=== PATIENT | female | born 2000 | race African-American/Black ===

== ENCOUNTER 2023-01-11 09:41 | Outpatient (CLI) | payer OTHER, SELFPAY ==
[2023-01-11 21:18] LABS: Thyroid Stimulating Hormone 0.497 uIU/mL (0.465-4.680)
[2023-01-11 22:15] LABS: Free T4 Free Thyroxine 1.17 ng/mL (0.78-2.19)
[2023-01-15 05:21] LABS: Triiodothyronine T3 Free 2.6 pg/mL (2.3-4.2)
== END 2023-01-11 09:42 | disposition home or self-care (01) ==
LOC: ANHWCLAB 09:42
PROVIDERS: Visit Provider Internal Medicine Endocrinology, Diabetes & Metabolism
DX: R79.89 Other specified abnormal findings of blood chemistry (principal); E04.9 Nontoxic goiter, unspecified
CPT/HCPCS: 36415; 84439; 84443; 84481

== ENCOUNTER 2023-02-22 14:30 | Outpatient (RCR) | payer OTHER, SELFPAY | END 2023-04-10 11:26 | disposition home or self-care (01) | LOC: ANHDMC 14:30 | PROVIDERS: Visit Provider Internal Medicine Endocrinology, Diabetes & Metabolism | DX: E11.65 Type 2 diabetes mellitus with hyperglycemia (principal); Z79.4 Long term (current) use of insulin; Z71.89 Other specified counseling | CPT/HCPCS: G0108; G0109 ==